=== PATIENT | female | born 1940 | race Two or more races ===

== ENCOUNTER 2017-08-10 12:28 | Emergency (ER) | payer OTHER ==
[2017-08-10 12:33] VITALS: BP 145/82; PULSE 98; TEMP 98.3; BMI 32.2
[2017-08-10] MEDS ORDERED: KETOROLAC TROMETHAMINE 60 MG/2 ML VIAL IM ONE (14:01)
[2017-08-10] MEDS ORDERED: KETOROLAC TROMETHAMINE 60 MG/2 ML VIAL ONE (14:05)
--- NOTE | 2017-08-10 14:06 | PDOC ---
History of Present Illness - General Chief Complaint: Back Pain Stated Complaint: BACK PAIN/left buttocks Time Seen by Provider: 08/10/17 13:24 History Source: Patient, Family Exam Limitations: No Limitations - History of Present Illness Initial Comments: 08/10/17 14:01 Daughter here with mother with complaints of severe low back pain and spasm times one week states onset was last week without knowledge of any injury. No heavy lifting or strenuous activity. States was primarily on the left side and has used Naprosyn with minimal resolved. States also tried icy hot and heating pad with minimal relief. Denies numbness or tingling to foot although has radiating pain down left leg to heal, denies fever, denies any bowel or bladder problems. Occurred: reports: last week Severity: reports: mild, moderate Pain Location: reports: back Past History - Travel Traveled outside of the country in the last 30 days: No Close contact w/someone who was outside of country & ill: No - Past Medical History Allergies/Adverse Reactions: Allergies Allergy/AdvReac Type Severity Reaction Status Date / Time No Known Allergies Allergy Verified 08/10/17 12:32 Home Medications: Ambulatory Orders Cyclobenzaprine HCl [Flexeril 10 mg] 10 mg PO BID PRN #14 tablet 08/10/17 Metoprolol Succinate/Hctz [Metoprolol ER-Hctz 25-12.5 mg] 25 mg PO ASDIR Naproxen [Naprosyn -] 500 mg PO BID 08/10/17 Naproxen [Naprosyn -] 500 mg PO BID #30 tablet 08/10/17 Nifedipine [Nifedipine ER] 60 mg PO ASDIR 08/10/17 Simvastatin 10 mg PO ASDIR 08/10/17 Diabetes: Yes HTN: Yes Hypercholesterolemia: Yes - Surgical History Cholecystectomy: Yes - Suicide/Smoking/Psychosocial Hx Smoking History: Never smoked Information on smoking cessation initiated: No Hx Alcohol Use: No Drug/Substance Use Hx: No Substance Use Type: None Review of Systems - Review of Systems Able to Perform ROS?: Yes Is the patient limited Kiswahili proficient: Yes Constitutional: Yes: Symptoms Reported, See HPI, Loss of Appetite. No: Fever, Malaise HEENTM: Yes: See HPI. No: Symptoms Reported Respiratory: No: Symptoms reported Musculoskeletal: Yes: Symptoms Reported, See HPI, Back Pain, Muscle Pain, Muscle Weakness Integumentary: Yes: Symptoms Reported, Rash (states she is full-term cream on her lower back and leg and erupted with an dermatitis secondary to the lotion.) , Other Neurological: No: Symptoms reported All Other Systems: Reviewed and Negative *Physical Exam - Vital Signs Last Vital Signs Temp Pulse Resp BP Pulse Ox 98.3 F 98 H 19 145/82 99 08/10/17 12:30 08/10/17 12:30 08/10/17 12:30 08/10/17 12:30 08/10/17 12:30 - Physical Exam General Appearance: Yes: Nourished, Appropriately Dressed, Apparent Distress, Mild Distress, Moderate Distress HEENT: positive: TERRY, Normal ENT Inspection, TMs Normal, Pharynx Normal Neck: positive: Supple. negative: Tender Respiratory/Chest: positive: Lungs Clear Gastrointestinal/Abdominal: positive: Soft. negative: Tender Musculoskeletal: positive: Normal Inspection, Decreased Range of Motion, Muscle Spasm (palpable spasm noted to the paravertebral spinous musculature primarily on the left side perform leg raise test secondary to tenderness to her low lumbar spine. Has no bone tenderness, no crepitus or step-offs. Range of motion is limited secondary to this pain) Extremity: positive: Normal Capillary Refill, Normal Inspection. negative: Normal Range of Motion Integumentary: positive: Normal Color, Rash (macular erythematous confluent rash to left posterior calf, area where full tearing cream was placed. Not vesicular appearance, no streaking, no cellulitis noted) Neurologic: positive: board certified family physician II-XII NML intact, Fully Oriented, Alert Progress Note - Progress Note Progress Note: A back strain, will treat with NSAIDs and cyclobenzaprine *DC/Admit/Observation/Transfer Diagnosis at time of Disposition: Strain of lumbar region Qualifiers: Encounter type: initial encounter Qualified Code(s): S39.012A - Strain of muscle, fascia and tendon of lower back, initial encounter; S39.012A - Strain of muscle, fascia and tendon of lower back, initial encounter - Discharge Dispostion Disposition: HOME Condition at time of disposition: Stable Admit: No - Referrals Referrals: Hector Helton MD [Primary Care Provider] - - Patient Instructions Printed Discharge Instructions: DI for Back Strain or Sprain Additional Instructions: Rest, no heavy lifting or exercise until pain is resolved Hot soaks to neck and low back as often as possible/hot showers or Jacuzzis No massage or therapy until spasm is gone Continue ibuprofen 2-200 mg tablets every 6 hours for the next 3 days then as needed for pain and swelling/ use Naprosyn 500 mg tablets every 8 hours instead of ibuprofen as desired Cyclobenzaprine 1-10mg every 8 hours as needed for spasm If not significant improvement within 24 hours with medication and rest regime, followup with private physician for change in medications and /or therapy. - Post Discharge Activity
== END 2017-08-10 14:46 | disposition home or self-care (01) ==
LOC: JERFT 12:28
PROC: 3E0233Z Introduction of Anti-inflammatory into Muscle, Percutaneous Approach (ICD-10-PCS; principal; 2017-08-10)
DX: S39.012A Strain of muscle, fascia and tendon of lower back, initial encounter (principal); I10 Essential (primary) hypertension; E78.00 Pure hypercholesterolemia, unspecified; E11.9 Type 2 diabetes mellitus without complications; X58.XXXA Exposure to other specified factors, initial encounter; Y93.9 Activity, unspecified; Y92.9 Unspecified place or not applicable
CPT/HCPCS: 99281-25

== ENCOUNTER 2019-02-12 10:10 | Emergency (ER) | payer OTHER ==
[2019-02-12 10:25] VITALS: TEMP 97.6; BMI 34.5
--- NOTE | 2019-02-12 10:32 | PDOC ---
History of Present Illness - General Chief Complaint: Nausea/Vomiting Stated Complaint: STOMACH PAIN Time Seen by Provider: 02/12/19 10:32 History Source: Patient, Family (Daughter) Exam Limitations: No Limitations - History of Present Illness Initial Comments: Pt is a 78 yo F, with presenting with complaints of RLQ and R flank pain x1 month. Pt states the pain is intermittent, but has been constant and worse in intensity since this AM. Pt states the pain is now in the RLQ and radiating to the groin. She also states the urine is "dribbling out" and is not in a constant stream, but denies any hematuria or dysuria. Pt has not tried any OTC medication for pain at all, and told her PCP (Dr. Helton) that the pain was just in the R flank. Pt has been tolerating PO food or fluid intake. Pt denies any fevers/chills, headache, vision changes, syncope, chest pain, palpitations, SOB, nausea/vomiting, dysuria/hematuria/urgency, diarrhea/constipation, or leg swelling. Social: Pt denies any cigarette, alcohol, or drug use. Pt denies any recent travel or sick contacts. Surgical: cholecystectomy 2 years ago. Family: kidney stones throughout the family. 02/12/19 11:38 Past History - Travel Traveled outside of the country in the last 30 days: No Close contact w/someone who was outside of country & ill: No - Past Medical History Allergies/Adverse Reactions: Allergies Allergy/AdvReac Type Severity Reaction Status Date / Time No Known Allergies Allergy Verified 08/10/17 12:32 Home Medications: Ambulatory Orders Desmopressin (Nonrefrigerated) [Desmopressin 10 Mcg/0.1 ml Spr] 10 mcg NS BID Ketorolac 0.5% Eye Drop 1 drop OP QID 02/12/19 Ofloxacin [Ocuflox] 5 ml OP QID 02/12/19 Prednisolone 1% Ophthalmic [Pred Forte 1% -] 1 drop OP BID 02/12/19 COPD: No Diabetes: No HTN: Yes Hypercholesterolemia: Yes - Surgical History Cholecystectomy: Yes - Suicide/Smoking/Psychosocial Hx Smoking History: Current every day smoker Information on smoking cessation initiated: No Hx Alcohol Use: No Drug/Substance Use Hx: No Substance Use Type: None Review of Systems - Review of Systems Able to Perform ROS?: Yes Is the patient limited Macedonian proficient: No Constitutional: Yes: Weight Stable. No: Chills, Diaphoresis, Fever, Loss of Appetite, Malaise, Weakness HEENTM: No: Double Vision, Nose Congestion, Throat Pain, Throat Swelling Respiratory: No: Cough, Orthopnea, Shortness of Breath Cardiac (ROS): No: Chest Pain, Edema, Irregular Heart Rate, Lightheadedness, Palpitations, Syncope, Chest Tightness ABD/GI: Yes: See HPI, Abdominal cramping. No: Abdominal Distended, Constipated , Diarrhea, Nausea, Poor Appetite, Poor Fluid Intake, Rectal Bleeding, Vomiting , Indigestion : Yes: See HPI ("stream dribbling"). No: Burning, Dysuria, Pain, Urgency Musculoskeletal: Yes: See HPI, Back Pain (RLQ radiating to flank and groin). No : Joint Pain Integumentary: No: Rash Neurological: No: Headache, Weakness, Unsteady Gait, Ataxia Psychiatric: No: Sleep Pattern Change, Change in Appetite Endocrine: No: Increased Urine, Change in Weight Hematologic/Lymphatic: No: Anemia, Blood Clots, Easy Bleeding, Easy Bruising All Other Systems: Reviewed and Negative *Physical Exam - Vital Signs Last Vital Signs Temp Pulse Resp BP Pulse Ox 97.6 F 77 16 160/92 100 02/12/19 10:15 02/12/19 10:15 02/12/19 10:15 02/12/19 10:15 02/12/19 10:15 - Physical Exam Comments: HTN 160/92, pt afebrile. Pt appears uncomfortable, rolling on bed. Obese body habitus. Pt alert and oriented x3. screw machine tender generally intact, muscular strength and sensation intact. Head normocephalic, atraumatic. Eyes PERRLA, EOMI. Oropharynx without erythema or exudates, no LAD b/l. No nasal congestion, hearing intact. Clear heart sounds, S1/S2, no JVD, b/l pedal edema, or heart murmur. Clear lung sounds, no respiratory distress, wheezes, crackles, or accessory muscle use. No abdominal or CVA tenderness to palpation, no rebound, no guarding. Abdomen soft, non-distended, and with normoactive bowel sounds. Benign abdominal exam. Skin without jaundice or rash. 02/12/19 12:59 ED Treatment Course - LABORATORY CBC & Chemistry Diagram: 02/12/19 11:11 02/12/19 11:11 Medical Decision Making - Medical Decision Making Pt was seen at bedside, also will be seen by attending Dr. Gaines. Pt presenting with complaints of RLQ and R flank pain x1 month. Pt states the pain is intermittent, but has been constant and worse in intensity since this AM. Pt states the pain is now in the RLQ and radiating to the groin. She also states the urine is "dribbling out" and is not in a constant stream, but denies any hematuria or dysuria. Pt has not tried any OTC medication for pain at all, and told her PCP (Dr. Helton) that the pain was just in the R flank. Pt has been tolerating PO food or fluid intake. Pt denies any fevers/chills, headache, vision changes, syncope, chest pain, palpitations, SOB, nausea/vomiting, dysuria /hematuria/urgency, diarrhea/constipation, or leg swelling. Considering nephrolithiasis vs UTI vs appendiceal pathology vs diverticulitis/ colitis vs mesenteric ischemia. Ordered work-up including CBC, CMP, UA, urine culture, type and screen, lactic acid, coags, and abd/pelvis CT with IV contrast. Provided 1 L IV NS and 1 g ofirmev for improvement of pain. Will continue to reassess pt and monitor for symptomatic improvement. 02/12/19 11:35 CBC WNL CMP: Na 126, Cl 92 -- providing 1 L IV NS; BUN/Cr 13/0.5 Lactic 0.5 UA: 2+ LE, WBC 14, but appears contaminated with epithelial cells Pt provided 2 mg IV morphine because still complaining of pain. Pt taken for CT scan. 02/12/19 13:00 Impression: No definite CT findings of acute pathology are identified. Status post cholecystectomy. Biliary tract dilatation is noted as discussed above. Clinical/laboratory correlation is suggested. MRI/MRCP evaluation may be considered. Moderate umbilical hernia containing fat only. Small bilateral inguinal hernias containing fat only. Mild to moderate chronic L1 vertebral body compression fracture without bony retropulsion. 02/12/19 13:55 Pt pain controlled. Considering normal lab results and imaging pt can be discharged to home with follow-up. Pt advised to follow-up with PCP in 1-2 days. Strict return precautions provided with pt understanding. 02/12/19 13:55 *DC/Admit/Observation/Transfer Diagnosis at time of Disposition: RLQ abdominal pain - Discharge Dispostion Disposition: HOME Condition at time of disposition: Improved Decision to Admit order: No - Referrals Referrals: Hector Helton MD [Primary Care Provider] - - Patient Instructions Printed Discharge Instructions: DI for Abdominal Pain-Adult Additional Instructions: You were seen in the ER today for pain in the right side of your flank and abdomen. The results of your labs and imaging today were normal. Please follow- up with your primary care doctor within 1-2 days to discuss your visit and make sure your symptoms have improved. Please return to the ER if you have any worsening pain, development of fevers or chills, loss of consciousness, inability to tolerate food or fluids, or any other concerns. - Post Discharge Activity
[2019-02-12] MEDS ORDERED: ACETAMINOPHEN 1000 MG/100 ML VIAL (NON FORMULARY) IVPB ONE (10:47)
[2019-02-12] MEDS ORDERED: SODIUM CHLORIDE 1,000 ML IV STA (10:53)
[2019-02-12] MEDS ORDERED: ACETAMINOPHEN INJECTION 100 ML IVPB ONE (11:02)
[2019-02-12 11:32] LABS: BASO % 0.5 % (0-2.0); EOS % 0.9 % (0-4.5); HEMATOCRIT 34.6 % (32.4-45.2); HEMOGLOBIN 11.8 GM/dL (10.7-15.3); LYMPH % 17.7 % (8-40); MCH 27.7 pg (25.7-33.7); MEAN CELL VOLUME 81.4 fl (80-96); MEAN PLT VOLUME 7.7 fl (7.5-11.1); MONO % 11.3 % (3.8-10.2); NEUT % 69.6 % (42.8-82.8); PLATELET COUNT 275 K/MM3 (134-434); RBC 4.24 M/mm3 (3.60-5.2); RDW 14.9 % (11.6-15.6)
[2019-02-12 11:47] LABS: INR 1.01 (0.83-1.09); PROTHROMBIN TIME (PATIENT) 11.9 SEC (9.7-13.0)
[2019-02-12 11:57] LABS: ALBUMIN 3.8 g/dl (3.4-5.0); ALK PHOS 90 U/L (45-117); ANION GAP 10 MMOL/L (8-16); BILIRUBIN,TOTAL 0.2 mg/dL (0.2-1); BLOOD UREA NITROGEN 13 mg/dL (7-18); CALCIUM 8.1 mg/dL (8.5-10.1); CHLORIDE 92 mmol/L (98-107); CO2 25 mmol/L (21-32); CREATININE 0.5 mg/dL (0.55-1.3); GLUCOSE,RANDOM 106 mg/dL (74-106); LIPASE 187 U/L (73-393); POTASSIUM 3.9 mmol/L (3.5-5.1); SGOT/AST 19 U/L (15-37); SGPT/ALT 17 U/L (13-61); SODIUM 126 mmol/L (136-145); TOT PROT 7.3 g/dl (6.4-8.2)
[2019-02-12] MEDS ORDERED: morphine CARPU-JECT 4 MG/1 ML DISP.SYRIN IVPUSH ONE (12:24)
[2019-02-12] MEDS ORDERED: MORPHINE SULFATE 2 MG/ML VIAL ONE (12:26)
[2019-02-12 12:34] LABS: EPI CELLS 2.4 /HPF (0-5/HPF); URINE APPEARANCE CLEAR; URINE BACTERIA 8.5 /hpf (NEGATIVE); URINE BILIRUBIN NEGATIVE (NEGATIVE); URINE CASTS 2 /hpf (0-8); URINE COLOR YELLOW; URINE GLUCOSE (UA) NEGATIVE (NEGATIVE); URINE KETONE NEGATIVE (NEGATIVE); URINE LEUK ESTERASE 2+ (NEGATIVE); URINE NITRITE NEGATIVE (NEGATIVE); URINE PROTEIN NEGATIVE (NEGATIVE); URINE RBC 2 /hpf (0-4); URINE WBC 14 /hpf (0-5)
--- NOTE | 2019-02-12 14:21 | PDOC ---
Attending Attestation - Resident Resident Name: Mia Lyle - ED Attending Attestation I have performed the following: I have examined & evaluated the patient, The case was reviewed & discussed with the resident, I agree w/resident's findings & plan, Exceptions are as noted - HPI HPI: 02/12/19 14:16 78 F presenting to ED with R flank and RLQ pain x 1 month. Pt reports intermittent pain that has progressively worsened. Denies any N/V/D. Denies F/ C. Pt states the pain is in her R groin and wraps around to her R lower back. Denies any falls or trauma. Denies any dysuria. Pt states that the pain is exacerbated by certain positions. No association with food. No abdominal distention or constipation. - Physicial Exam PE: 02/12/19 14:17 GENERAL: Awake, alert, and fully oriented, in no acute distress. HEAD: No signs of trauma EYES: PERRLA, EOMI, sclera anicteric, conjunctiva clear ENT: Auricles normal inspection, hearing grossly normal, nares patent, oropharynx clear without exudates. Moist mucosa NECK: Nontender, no stepoffs, Normal ROM, supple, no lymphadenopathy, JVD, or masses LUNGS: Breath sounds equal, clear to auscultation bilaterally. No wheezes, and no crackles HEART: Regular rate and rhythm, normal S1 and S2, no murmurs, rubs or gallops ABDOMEN: + R groin tenderness, no masses, normoactive bowel sounds. No guarding , no rebound. EXTREMITIES: Normal range of motion, no edema. No clubbing or cyanosis. No cords, erythema, or tenderness NEUROLOGICAL: Cranial nerves II through XII intact. 5/5 strength and sensation in all extremities, Normal speech, normal gait, normal cerebellar function SKIN: Warm, Dry, normal turgor, no rashes or lesions noted. - Medical Decision Making 02/12/19 14:26 78 F with R groin and R flank pain. Will r/o nephrolithiasis vs appendicitis. No palpable masses on exam to suggest hernia. Pt with no hip pain, full ROM R hip. - Labs - CTAP - Pain control 02/12/19 15:35 Labs wnl other than Na 126 - likely chronic, as pt with no symptoms of hyponatremia CT unremarkable - bilateral inguinal hernias but only fat-containing Pt also with L1 compression fracture, but this is not the location of her pain Pt reassessed - pain is now well controlled will DC with percocets and PMD f/u Pt is well appearing, with normal vitals. Clinically stable for DC at this time. I discussed the physical exam findings, ancillary test results and final diagnoses with the patient. I answered all of the patient's questions. The patient was satisfied with the care received and felt comfortable with the discharge plan and treatment plan. The patient agrees to follow up with the primary care physician within 24-72 hours.
[2019-02-12 15:08] VITALS: BP 105/69; PULSE 60
== END 2019-02-12 16:06 | disposition home or self-care (01) ==
LOC: JER 10:10
PROC: 3E0337Z Introduction of Electrolytic and Water Balance Substance into Peripheral Vein, Percutaneous Approach (ICD-10-PCS; principal; 2019-02-12)
PROC: 3E033NZ Introduction of Analgesics, Hypnotics, Sedatives into Peripheral Vein, Percutaneous Approach (ICD-10-PCS; 2019-02-12)
PROC: 3E033NZ Introduction of Analgesics, Hypnotics, Sedatives into Peripheral Vein, Percutaneous Approach (ICD-10-PCS; 2019-02-12)
DX: R10.31 Right lower quadrant pain (principal); I10 Essential (primary) hypertension; E78.00 Pure hypercholesterolemia, unspecified; K40.20 Bilateral inguinal hernia, without obstruction or gangrene, not specified as recurrent
CPT/HCPCS: 36415; 74177-TC; 80053; 81003; 83605; 83690; 85025; 85610; 86850; 86900; 86901; 87086; 96361; 96374; 96375; 99283-25; J0131; J7030

== ENCOUNTER 2021-08-15 17:08 | Emergency (ER) | payer OTHER ==
[2021-08-15 17:39] VITALS: BP 143/87; PULSE 96; TEMP 98.8; BMI 26.2
[2021-08-15 18:11] LABS: BASO % 1.3 % (0-2.0); EOS % 5.5 % (0-4.5); HEMATOCRIT 34.8 % (32.4-45.2); HEMOGLOBIN 11.5 GM/dl (10.7-15.3); LYMPH % 37.2 % (8-40); MCH 27.6 pg (25.7-33.7); MCHC 33.1 g/dl (32.0-36.0); MEAN CELL VOLUME 83.2 fl (80-96); MEAN PLT VOLUME 7.7 fl (7.5-11.1); MONO % 9.1 % (3.8-10.2); NEUT % 46.9 % (42.8-82.8); PLATELET COUNT 316 10^3/uL (134-434); RBC 4.18 M/mm3 (3.60-5.2); RDW 14.4 % (11.6-15.6); WHITE BLOOD COUNT 6.8 K/mm3 (4.0-10.8)
[2021-08-15 18:19] LABS: ALBUMIN 3.9 g/dl (3.4-5.0); BILIRUBIN,TOTAL 0.4 mg/dl (0.2-1); CALCIUM 9.3 mg/dl (8.5-10); CREATININE 0.6 mg/dl (0.55-1.3); TOT PROT 6.7 g/dl (6.4-8.2)
== END 2021-08-15 18:37 | disposition home or self-care (01) ==
LOC: FER 17:08
DX: R79.89 Other specified abnormal findings of blood chemistry (principal)
CPT/HCPCS: 36415; 80053; 85025; 99283-25

== ENCOUNTER 2022-07-26 14:50 | Emergency (ER) | payer OTHER ==
[2022-07-26 15:02] VITALS: BP 136/72; PULSE 92; RESP 18; TEMP 98.2; BMI 32.0
[2022-07-26 16:14] LABS: EPI CELLS >36 /uL (0-25.1); HYALINE CASTS 12 /uL (0-3.1); PH,URINE 5.5 (5.0-8.0); URINE APPEARANCE CLOUDY; URINE BACTERIA 37 /uL (0-1359); URINE BILIRUBIN 1+ (NEGATIVE); URINE COLOR DK YELLOW; URINE GLUCOSE (UA) NEGATIVE (NEGATIVE); URINE KETONE TRACE (NEGATIVE); URINE LEUK ESTERASE 2+ (NEGATIVE); URINE NITRITE NEGATIVE (NEGATIVE); URINE PROTEIN TRACE (NEGATIVE); URINE RBC 20 /uL (0-23.9); URINE WBC 90 /uL (0-25.8)
[2022-07-26] MEDS ORDERED: SODIUM CHLORIDE 1,000 ML IV STA (16:14)
[2022-07-26 17:33] LABS: BASO % 0.2 % (0-2.0); EOS % 0.2 % (0-4.5); HEMATOCRIT 31.3 % (32.4-45.2); HEMOGLOBIN 10.6 GM/dL (10.7-15.3); LYMPH % 8.1 % (8-40); MCHC 33.9 g/dl (32.0-36.0); MEAN CELL VOLUME 82.4 fl (80-96); MEAN PLT VOLUME 7.3 fl (7.5-11.1); NEUT % 77.5 % (42.8-82.8); PLATELET COUNT 388 10^3/uL (134-434); RDW 14.5 % (11.6-15.6); WHITE BLOOD COUNT 9.3 K/mm3 (4.0-10.0)
[2022-07-26 17:48] LABS: CALCIUM 8.4 mg/dL (8.5-10.1)
[2022-07-26 17:49] LABS: ALBUMIN 3.1 g/dl (3.4-5.0); BLOOD UREA NITROGEN 18.9 mg/dL (7-18)
[2022-07-26 17:51] LABS: CREATININE 0.7 mg/dL (0.55-1.3)
[2022-07-26 17:53] LABS: TOT PROT 7.2 g/dl (6.4-8.2)
[2022-07-26 19:54] LABS: EPI CELLS 5 /uL (0-25.1); HYALINE CASTS 0 /uL (0-3.1); URINE APPEARANCE CLEAR; URINE BACTERIA 6 /uL (0-1359); URINE BILIRUBIN NEGATIVE (NEGATIVE); URINE COLOR YELLOW; URINE GLUCOSE (UA) NEGATIVE (NEGATIVE); URINE KETONE NEGATIVE (NEGATIVE); URINE LEUK ESTERASE NEGATIVE (NEGATIVE); URINE NITRITE NEGATIVE (NEGATIVE); URINE PROTEIN NEGATIVE (NEGATIVE); URINE RBC 16 /uL (0-23.9); URINE WBC 8 /uL (0-25.8)
== END 2022-07-26 20:44 | disposition home or self-care (01) ==
LOC: JER 14:50
DX: R68.83 Chills (without fever) (principal); R53.0 Neoplastic (malignant) related fatigue; R05.1 Acute cough
CPT/HCPCS: 0241U-QW; 36415; 71045-TC-FY; 80053; 81003; 83690; 85025; 87086; 99284-25